=== PATIENT | male | born 1995 | race African-American/Black ===

== ENCOUNTER 2017-08-06 07:25 | Emergency (ER) | payer OTHER ==
[2017-08-06 08:17] LABS: BASOPHIL 0.4 % (0-2); EOSINOPHIL 1.7 % (0-5); HCT 45.2 % (42.0-52.0); HGB 14.9 g/dl (13.2-18.0); LYMPHOCYTE 33.5 % (15-48); MCH 28.2 pg (25.0-31.0); MCV 85.6 fL (78.0-100.0); MONOCYTE 5.8 % (0-12); MPV 10.5 fL (6.0-9.5); NEUTROPHIL 58.6 % (41-80); PLT 206 K/uL (150-400); RBC 5.28 M/uL (4.70-6.00); RDW 13.4 % (11.5-14.0); WBC 11.2 K/uL (4.0-10.5)
[2017-08-06 08:28] LABS: AMPHETAMINES NEGATIVE (NEGATIVE); BARBITURATES NEGATIVE (NEGATIVE); BENZODIAZEPINES POSITIVE (NEGATIVE); COCAINE POSITIVE (NEGATIVE); MARIJUANA (THC) NEGATIVE (NEGATIVE); METHADONE NEGATIVE (NEGATIVE); TRICYCLIC ANTIDEPRESSANT NEGATIVE (NEGATIVE)
[2017-08-06 08:39] LABS: ACETAMINOPHEN (TYLENOL) < 5.0 ug/mL (10.0-30.0); ALCOHOL (ETOH) MEDICAL 36 mg/dL; SALICYLATE 17 ug/mL (0-300)
[2017-08-06 08:49] LABS: CREATININE 1.1 mg/dL (0.7-1.2); POTASSIUM 3.6 mmol/L (3.5-5.1)
== END 2017-08-06 09:11 | disposition home or self-care (01) ==
LOC: FER 07:25
PROVIDERS: Internal Medicine
DX: F14.10 Cocaine abuse, uncomplicated (principal); R41.82 Altered mental status, unspecified; F17.200 Nicotine dependence, unspecified, uncomplicated
CPT/HCPCS: 36415; 80048; 80305; 85025; 99283; G0480

== ENCOUNTER 2021-02-09 14:28 | Emergency (ER) | payer OTHER ==
[~2021-02-09 14:28] MED LIST: BACTRIM DS TAB1 EACH PO; CLONIDINE HCL0.1 MG PO; IBU800 MG PO; LEVAQUIN500 MG PO; LOPRESSOR25 MG PO; NORVASC5 MG PO; PANTOPRAZOLE SO40 MG PO; VISTARIL25 MG PO
[2021-02-09 15:30] LABS: BASOPHIL 0.9 % (0-2); EOSINOPHIL 0.3 % (0-5); HCT 46.2 % (42.0-52.0); HGB 12.9 g/dl (13.2-18.0); LYMPHOCYTE 21.8 % (15-48); MCH 28.3 pg (25.0-31.0); MCHC 27.9 g/dL (32.0-36.0); MCV 101.3 fL (78.0-100.0); MONOCYTE 7.6 % (0-12); NEUTROPHIL 57.5 % (41-80); NRBC 1.8; PLT 148 K/uL (150-400); RBC 4.56 M/uL (4.70-6.00); WBC 23.5 K/uL (4.0-10.5)
[2021-02-09 15:49] LABS: INR 1.99 (0.9-1.2); PROTHROMBIN TIME 21.5 SECONDS (11.4-13.6); PTT 56.1 SECONDS (22.2-34.7)
[2021-02-09 16:00] LABS: ALBUMIN 2.5 g/dL (3.4-5.0); ALKALINE PHOSHATASE 100 U/L (46-116); ALT >3500 U/L (16-63); AST 1903 U/L (15-37); BILIRUBIN - TOTAL 0.3 mg/dL (0.2-1.0); BUN 14 mg/dL (7-18); BUN/CREAT RATIO (CALC) 6.5 RATIO; CHLORIDE 106 mmol/L (98-107); CO2 (BICARBONATE) 22 mmol/L (21-32); CPK 732 U/L (39-308); CREATININE 2.14 mg/dL (0.67-1.17); GLOBULIN (CALCULATION) 3.2 g/dL; GLUCOSE 142 mg/dL (74-106); POTASSIUM 5.8 mmol/L (3.5-5.1); TOTAL PROTEIN 5.7 g/dL (6.4-8.2)
== END 2021-02-09 17:05 | disposition expired ==
LOC: FER 14:28
PROVIDERS: Emergency Medicine
DX: I46.9 Cardiac arrest, cause unspecified (principal); I44.0 Atrioventricular block, first degree; F17.200 Nicotine dependence, unspecified, uncomplicated
CPT/HCPCS: 31500; 36415; 36600; 71045; 80053; 82550; 82553; 82803; 83605; 85025; 85610; 85730; 92950; 93005; 96374; 96375; 96376; J0171; J0282; J1956; J2310; J7030; J7060